=== PATIENT | male | born 1990 ===

== ENCOUNTER 2023-08-18 14:59 | Outpatient (CLI) | payer OTHER, SELFPAY | END 2023-08-18 15:00 | disposition home or self-care (01) | PROVIDERS: PCP Family Medicine; Visit Provider Family Medicine | DX: R79.89 Other specified abnormal findings of blood chemistry (principal); Z13.228 Encounter for screening for other metabolic disorders; Z13.220 Encounter for screening for lipoid disorders | CPT/HCPCS: 80053; 80061 ==